=== PATIENT | female | born 1945 | race Caucasian/White ===

== ENCOUNTER 2022-06-15 15:35 | Emergency (ER) | payer MEDICARE ==
[~2022-06-15] VITALS: Ht 165.1 cm; Wt 63.6 kg
[2022-06-15 15:37] VITALS: BP 166/77
[2022-06-15] MEDS ORDERED: POTA-92 PO (15:43)
[2022-06-15] MEDS ORDERED: HYDR25TA2 PO (15:43)
[2022-06-15] MEDS ORDERED: ATOR10TA PO (15:43)
== END 2022-06-15 19:03 | disposition left against medical advice (07) ==
LOC: EMS 15:42
DX: H57.11 Ocular pain, right eye (principal); Z53.21 Procedure and treatment not carried out due to patient leaving prior to being seen by health care provider